=== PATIENT | female | born 1990 ===

== ENCOUNTER 2019-09-28 11:49 | Emergency (ER) | payer SELFPAY ==
[~2019-09-28] VITALS: Ht 165.1 cm; Wt 61.2 kg
[2019-09-28] MEDS ORDERED: DEPAKOTE250 MG PO (11:51)
[2019-09-28] MEDS ORDERED: KEPPRA1000 MG ORAL (11:51)
[2019-09-28 11:53] VITALS: BP 122/60
--- NOTE | 2019-09-28 11:53 | NUR ---
ED Nurse Note: PT BROUGHT IN BY AMBULANCE DUE TO SEIZURE TONIC CLONIC X 60-120 SEC WITNESSED BY HER BOYFRIEND. DENIES ORAL TRAUMA. NO LOC AND ASYMPTOMATIC UPON ARRIVAL. AAO X, AMBULATORY WITH NON LABORED BREATHING. BOYFRIEND AT THE BED SIDE.
[2019-09-28] MEDS ORDERED: levETIRAcetam 1,000mg/NS100ml 100 ML IVPB ONE (12:00)
--- NOTE | 2019-09-28 12:12 | NUR ---
ED Nurse Note: COLLECTED BLOOD THEN SENT.
[2019-09-28] MEDS ORDERED: LEVETIRACETAM IVPB ONE (12:16)
[2019-09-28] MEDS ORDERED: [UNRECOGNIZED DRUG - OTHER] IVPB ONE (12:16)
--- NOTE | 2019-09-28 12:18 | NUR ---
HAND-OFF: Report given to VALERIA NAYAK.
[2019-09-28 12:22] LABS: BASOPHILS % (AUTO) 1.7 % (0.0-2.0); EOSINOPHILS % (AUTO) 2.3 % (0.0-3.0); HEMATOCRIT 37.5 % (37.0-47.0); HEMOGLOBIN 12.5 G/DL (12.0-16.0); LYMPHOCYTES % (AUTO) 32.4 % (20.0-45.0); MEAN CORPUSCULAR VOLUME 83 FL (80-99); MONOCYTES % (AUTO) 8.4 % (1.0-10.0); NEUTROPHILS % (AUTO) 55.3 % (45.0-75.0); PLATELET COUNT 328 K/UL (150-450); RED CELL DISTRIBUTION WIDTH 12.7 % (11.6-14.8); WHITE BLOOD COUNT 8.9 K/UL (4.8-10.8)
--- NOTE | 2019-09-28 12:26 | NUR ---
ED Nurse Note: PT REFUSED PEE NASH INFORMED. RETURNED MED TO [facility]
--- NOTE | 2019-09-28 12:27 | NUR ---
ED Nurse Note: PT RESTING IN BED COMFORTABLY, PT REFUSES NORMAL SALINE BOLUS. BOYFRIEND AT BEDSIDE
[2019-09-28 12:29] LABS: ANION GAP 11 mmol/L (5-15); BLOOD UREA NITROGEN 14 mg/dL (7-18); CALCIUM 8.6 MG/DL (8.5-10.1); CARBON DIOXIDE 27 MMOL/L (21-32); CHLORIDE 107 MMOL/L (98-107); POTASSIUM 3.5 MMOL/L (3.5-5.1); SODIUM 145 MMOL/L (136-145)
[2019-09-28 13:02] VITALS: BP 116/79
--- NOTE | 2019-09-28 13:03 | NUR ---
ER DISCHARGE NOTE: Patient is cleared to be discharged per ERMD, pt is aox4, on room air, with stable vital signs. pt was given dc and prescription instructions, pt was able to verbalize understanding, pt id band and iv site removed without complications. pt is able to ambulate with steady gait. pt took all belongings.
--- NOTE | 2019-09-28 13:37 | Emergency Room Report ---
History of Present Illness General Chief Complaint: Seizure Source: Patient, Significant Other Present Illness HPI Patient presents with complaints of seizure activity Seizure witnessed by boyfriend Patient has had multiple seizures including one last week she has been noncompliant and off her medications For over the past 3 weeks Initially mildly postictal however has become oriented and verbal appropriately throughout her stay denies any headache denies any chest pain denies any back or flank pain Allergies: Coded Allergies: No Known Allergies (Unverified , 09/28/19) Patient History Past Medical History: see triage record Reviewed Nursing Documentation: PMH: Agreed; PSxH: Agreed Nursing Documentation-PMH Past Medical History: No History, Except For Hx Seizures: Yes Review of Systems All Other Systems: negative except mentioned in HPI Physical Exam Vital Signs Date Time Temp Pulse Resp B/P (MAP) Pulse Ox O2 Delivery O2 Flow Rate FiO2 09/28/19 11:43 98.8 111 19 115/59 (77) 98 Room Air Sp02 EP Interpretation: reviewed, normal General Appearance: well appearing, no apparent distress Head: normocephalic, atraumatic Eyes: bilateral eye PERRL, bilateral eye EOMI ENT: hearing grossly normal, normal pharynx, TMs + canals normal, uvula midline Neck: full range of motion, supple, no meningismus, no bony tend Respiratory: lungs clear, normal breath sounds, no rhonchi, no respiratory distress, no retraction, no accessory muscle use Cardiovascular #1: normal peripheral pulses, regular rate, rhythm, no edema, no gallop, no JVD, no murmur Gastrointestinal: normal bowel sounds, non tender, soft, no mass, no organomegaly, non-distended, no guarding, no hernia, no pulsatile mass, no rebound Genitourinary: no CVA tenderness Musculoskeletal: normal inspection Neurologic: motor strength/tone normal, 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, oriented x3 , sensory intact, responsive Psychiatric: mood/affect normal Lymphatic: normal inspection, no adenopathy Medical Decision Making Diagnostic Impression: Primary Impression: Seizure disorder ER Course Multiple differentials and consideration including but not limited to medical noncompliance metabolic disorders, infectious process Patient's blood work is at baseline levels patient refused her Keppra Has become more appropriate and verbal throughout her stay And at this time is stable for close outpatient follow-up Labs Test 09/28/19 12:00 White Blood Count 8.9 K/UL (4.8-10.8) Red Blood Count 4.50 M/UL (4.20-5.40) Hemoglobin 12.5 G/DL (12.0-16.0) Hematocrit 37.5 % (37.0-47.0) Mean Corpuscular Volume 83 FL (80-99) Mean Corpuscular Hemoglobin 27.9 PG (27.0-31.0) Mean Corpuscular Hemoglobin Concent 33.5 G/DL (32.0-36.0) Red Cell Distribution Width 12.7 % (11.6-14.8) Platelet Count 328 K/UL (150-450) Mean Platelet Volume 5.4 FL (6.5-10.1) Neutrophils (%) (Auto) 55.3 % (45.0-75.0) Lymphocytes (%) (Auto) 32.4 % (20.0-45.0) Monocytes (%) (Auto) 8.4 % (1.0-10.0) Eosinophils (%) (Auto) 2.3 % (0.0-3.0) Basophils (%) (Auto) 1.7 % (0.0-2.0) Sodium Level 145 MMOL/L (136-145) Potassium Level 3.5 MMOL/L (3.5-5.1) Chloride Level 107 MMOL/L (98-107) Carbon Dioxide Level 27 MMOL/L (21-32) Anion Gap 11 mmol/L (5-15) Blood Urea Nitrogen 14 mg/dL (7-18) Creatinine 1.0 MG/DL (0.55-1.30) Estimat Glomerular Filtration Rate > 60 mL/min (>60) Glucose Level 89 MG/DL (74-106) Calcium Level 8.6 MG/DL (8.5-10.1) Rhythm Strip Diag. Results EP Interpretation: yes Rate: 88 Rhythm: NSR, no PVC's, no ectopy Last Vital Signs Date Time Temp Pulse Resp B/P (MAP) Pulse Ox O2 Delivery O2 Flow Rate FiO2 09/28/19 13:02 98.8 89 20 116/79 100 Room Air Status: improved Disposition: HOME, SELF-CARE Condition: Improved Referrals: [facility] Patient Instructions: Seizure, Adult Additional Instructions: Patient is provided with the discharge instructions notified to follow up with primary doctor in the next 2-3 days otherwise return to the er with any worsening symptoms. Please note that this report is being documented using [employer] technology. This can lead to erroneous entry secondary to incorrect interpretation by the dictating instrument. Jennifer Gutierrez DO Sep 28, 2019 13:37
== END 2019-09-28 19:00 | disposition home or self-care (01) ==
LOC: EDBD 11:49 → EMR 18:28
DX: G40.909 Epilepsy, unspecified, not intractable, without status epilepticus (principal); Z91.14 Patient's other noncompliance with medication regimen
CPT/HCPCS: 36415; 80048; 85025; 99283